=== PATIENT | female | born 1985 | race Caucasian/White ===

== ENCOUNTER → 2016-12-23 | Outpatient (CLI) | payer OTHER ==
--- NOTE | 2016-12-23 16:55 | US ---
EXAMINATION TYPE: US transvaginal DATE OF EXAM: 12/23/2016 4:10 PM COMPARISON: NONE CLINICAL HISTORY: N92.6 irregular menses. Patient stated had irregular menses August 2016 through 2016; C section x 3 TECHNIQUE: Transvaginal (TV) as patient chose TVUS as bladder not full Date of LMP: 12/18/2016 EXAM MEASUREMENTS: Uterus: 9.0 x 6.0 x 4.6 cm Endometrial Stripe: 0.8 cm Right Ovary: 3.3 x 1.8 x 2.1 cm Left Ovary: 3.1 x 1.9 x 1.9 cm TECHNOLOGIST IMPRESSION: 1. Uterus: Anteverted; scar is noted 2. Endometrium: small amount of fluid in upper endo = 0.7 x 1.0 x 0.2cm 3. Right Ovary: multiple small follicles 4. Left Ovary: small follicles 5. Bilateral Adnexa: wnl 6. Posterior cul-de-sac: wnl Uterus is heterogeneous in appearance. Endometrium is 8 mm which is mildly thickened for proliferativ e phase of menstrual cycle. Tiny amount of fluid in endometrial canal is seen superiorly. No free flu id in pelvis is noted. Both ovaries are identified. No suspicious adnexal masses are seen. IMPRESSION: Endometrial thickness is 8 mm, mildly thickened for proliferative phase of menstrual cycl e.
== END ==
LOC: RADUSWWP 15:28
PROVIDERS: ATTEND Obstetrics & Gynecology
DX: N92.6 Irregular menstruation, unspecified (principal)
CPT/HCPCS: 76830

== ENCOUNTER → 2020-05-09 | Outpatient (CLI) | payer OTHER ==
--- NOTE | 2020-05-09 15:40 | US ---
EXAMINATION TYPE: US pelvis complete transvag DATE OF EXAM: 05/09/2020 COMPARISON: None CLINICAL HISTORY: 34-year-old female F10.2 PELVIC PAIN, N92.3 SPOTTING. TECHNIQUE: Transabdominal sonographic images of the pelvis were acquired. Transvaginal sonographic images were medically necessary to better assess the following anatomy: Endometrium Date of LMP: 05/05/2020 FINDINGS: EXAM MEASUREMENTS: Uterus: 9.5 x 4.4 x 6.1 cm Endometrial Stripe: 1.9 cm Right Ovary: 3.0 x 2.9 x 1.7 cm Left Ovary: 2.5 x 2.0 x 2.2 cm 1. Uterus: Anteverted and wnl. scar along the anterior lower uterine segment. 2. Endometrium: Thickened, irregular with fluid within 3. Right Ovary: wnl 4. Left Ovary: wnl 5. Bilateral Adnexa: wnl 6. Posterior cul-de-sac: no free fluid IMPRESSION: 1. Prior scar. 2. Abnormal lobulated thickening of the endometrium with fluid in the uterine cavity. Consider the ut ility of endometrial biopsy to further evaluate. Follow-up is recommended.
== END | disposition home or self-care (01) ==
LOC: RADUSWWP 14:59
PROVIDERS: ATTEND Obstetrics & Gynecology
DX: R93.89 Abnormal findings on diagnostic imaging of other specified body structures (principal); Z98.891 History of uterine scar from previous surgery; N92.3 Ovulation bleeding
CPT/HCPCS: 76830; 76856

== ENCOUNTER → 2020-08-07 | Outpatient (CLI) | payer OTHER ==
--- NOTE | 2020-08-07 17:19 | US ---
EXAMINATION TYPE: Ultrasound OB <= 14 weeks transvaginal DATE OF EXAM: 08/07/2020 4:24 PM COMPARISON: NONE CLINICAL HISTORY: 34-year-old female Z36 CONFIRM DATES. EXAM PERFORMED: Transvaginal (TV) and Transabdominal (TA) FINDINGS: EXAM MEASUREMENTS: GESTATIONAL AGE / DATING Physician Established: Not yet established Dates by LMP: 06/08/20 (8 weeks/4 days) EDC: 03/15/21 Dates by First Scan: No previous this is first scan Dates by Current Scan for: (8 weeks/0 days) EDC: 03/19/21 MATERNAL ANATOMY Uterus: 11.7 x 5.9 x 8.3 cm Right Ovary: 1.7 x 1.7 x 1.5 cm Left Ovary: 2.9 x 2.1 x 1.9 cm Post CDS / Adnexa: wnl Presence of free fluid: no Presence of corpus luteal cyst: not visualized at this time Presence of subchorionic bleed: yes, moderate sized located towards the left and inferior to the gest ational sac measuring 4.5 x 1.1 x 3.5 cm GESTATION / SURVEY CRL: 1.6 (8 weeks/1 days) MSD: 2.6 (7 weeks/5 days) Yolk Sac (normal less than 6mm): 0.4 Heart Rate: 163 bpm Rhythm: Normal IUP: Viable IUP Date of LMP: 06/08/20 Beta HcG (if available): Not available at this time [facility] notes: Single, viable IUP with HR= 163 bpm. Dates by Current Scan for: (8 weeks/0 days) EDC: 03/19/21 IMPRESSION: 1. Single live uterine with estimated gestational age of 8 weeks 4 days by LMP. Current ult rasound biometry is slightly smaller at 8 weeks 0 days. 2. Moderate-sized perigestational bleed measuring up to 4.5 x 3.5 x 1.1 cm. 3. Short interval follow-up can be performed. In addition, complete survey recommended at 18-20 weeks.
== END | disposition home or self-care (01) ==
LOC: RADUSWWP 15:34
PROVIDERS: ATTEND Obstetrics & Gynecology
DX: Z36.87 Encounter for antenatal screening for uncertain dates (principal); Z3A.08 8 weeks gestation of pregnancy
CPT/HCPCS: 76801; 76817

== ENCOUNTER 2020-11-01 05:52 | Observation (INO) | payer OTHER ==
--- NOTE | 2020-10-31 21:30 | P.HPOB ---
History of Present Illness H&P Date: 10/31/20 Chief Complaint: demise This is a 35 y.o. female, 4, para3, with an estimated date of confinement of 03/15/2021, who presented for scheduled anatomy scan on 10/31/2020 and was diagnoses with a demise at 15-5/7 weeks in the breech presentation. She thinks she has been feeling movement occasionally. She has felt some cramping a few days ago. She did have laminaria placed in the office on 10/31/2020. labs: GC/Chlamydia/Trich-neg Hepatitis B surface antigen-neg RPR-NR Rubella-immune Blood type-A+ Antibody screen-neg HIV-NR Hemoglobin-11.3 US- 8 weeks-+FHTs, subchorionic bleed 4.5 x 3.5 cm. OB Hx: . Hx of 3 previous c-sections. 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 Works at [employer] Review of Systems Constitutional: Denies chills, Denies fever Eyes: denies blurred vision, denies pain Ears, nose, mouth and throat: Denies headache, Denies sore throat Cardiovascular: Denies chest pain, Denies shortness of breath Respiratory: Denies cough Gastrointestinal: Denies abdominal pain, Denies diarrhea, Denies nausea, Denies vomiting Genitourinary: Reports , Denies dysuria, Denies hematuria Musculoskeletal: Denies myalgias Integumentary: Denies pruritus, Denies rash Neurological: Denies numbness, Denies weakness Psychiatric: Reports depression Past Medical History Additional Past Medical History / Comment(s): gestational diabetes w/pregnancies-diet controlled History of Any Multi-Drug Resistant Organisms: None Reported Past Surgical History: Section (x3) Past Anesthesia/Blood Transfusion Reactions: No Reported Reaction Past Psychological History: Depression Smoking Status: Never smoker Past Alcohol Use History: None Reported Past Drug Use History: None Reported - Past Family History Mother Family Medical History: Hypertension Father Family Medical History: Diabetes Mellitus, Hypertension Medications and Allergies Home Medications Medication Instructions Recorded Confirmed Type Citalopram Hydrobromide [CeleXA] 10/31/20 History Allergies Allergy/AdvReac Type Severity Reaction Status Date / Time No Known Allergies Allergy Verified 01/11/15 10:48 Exam Osteopathic Statement: *. No significant issues noted on an osteopathic structural exam other than those noted in the History and Physical/Consult. HEENT: within normal limits Hear: regular rate and rhythm Lungs: clear to auscultation bilaterally Abdomen: , non-tender Cervix: nulliparous os, closed Pelvic: uterus approx. 18 week size, non-tender. Extremities: neg. Twyla's Assessment and Plan (1) demise before 20 weeks with retention of fetus Status: Acute Code(s): O02.1 - MISSED SNOMED Code(s): 090552095 Plan: Proceed with Hemabate induction of labor. Pain control.
[2020-11-01] MEDS ORDERED: BUTORPHANOL 1 MG/ML 1 ML VIAL IV PRN (06:25)
[2020-11-01] MEDS ORDERED: LACTATED RINGERS 1,000 ML IV SCH (06:25)
[2020-11-01 07:05] LABS: Basophils % (A) 0 %; Eosinophils # (A) 0.1 k/uL (0-0.7); Eosinophils % (A) 1 %; HCT 34.2 % (34.0-46.0); HGB 11.7 gm/dL (11.4-16.0); Lymphocytes # (A) 1.4 k/uL (1.0-4.8); Lymphocytes % (A) 14 %; MCH 29.6 pg (25.0-35.0); MCHC 34.1 g/dL (31.0-37.0); MCV 86.6 fL (80.0-100.0); Mean Platelet Volume 7.3; Monocytes # (A) 0.3 k/uL (0-1.0); Monocytes % (A) 3 %; Neutrophils # (A) 8.6 k/uL (1.3-7.7); Neutrophils % (A) 82 %; Platelet Count 246 k/uL (150-450); RBC 3.95 m/uL (3.80-5.40); RDW 14.2 % (11.5-15.5); WBC 10.5 k/uL (3.8-10.6)
[2020-11-01] MEDS: ONDANSETRON 4 MG/2 ML VIAL IVP PRN ×2 (08:04→14:01)
[2020-11-01] MEDS: DIPHENOX-ATROP 2.5-0.025 MG 1 EACH TAB PO PRN ×2 (08:04→14:01)
[2020-11-01] MEDS: ACETAMINOPHEN TAB 325 MG TAB PO PRN ×2 (08:04→14:00)
[2020-11-01] MEDS: CARBOPROST TROMETHAMINE 250 MCG/ML 1 ML AMP IM SCH ×4 (08:37→14:39)
[2020-11-01 16:21] VITALS: TEMP 98.3
--- NOTE | 2020-11-01 17:38 | P.PROBDLV ---
Vaginal Delivery Note - . Vaginal Delivery Note: The patient delivered a nonviable what appears to be female infant after Hemabate induction at 1505. Infant weight was 90 g. There was noted to be a tight nuchal cord 3 and a cord wrapped around the left arm that was tight. Placenta didn't also come out intact with the baby. There was meconium fluid when rupture of membranes occurred spontaneously. After delivery, minimal bleeding was noted. Fundus is firm and nontender. Blood loss was less than 50 mL's. Mother is in stable condition. Mother declined autopsy.
--- NOTE | 2020-11-01 17:43 | P.DS ---
Providers Date of admission: 11/01/20 05:52 Expected date of discharge: 11/01/20 Attending physician: Rosie Sheppard Primary care physician: Stated None - Discharge Diagnosis(es) (1) demise before 20 weeks with retention of fetus Current Visit: No Status: Acute Hospital Course: This is a 35-year-old female 4 para 3 who has a demise measuring approximately 15 weeks 5 days on ultrasound yesterday. She underwent laminaria cervical dilation last night and was given Hemabate injections today. She delivered a nonviable apparent female at 1505 with a weight of 90 g and tight nuchal cord 3 around the neck and tight cord around the left arm. Placenta delivered at the same time intact. Placenta will be sent to pathology and will be sent for gross examination only. Mother declined autopsy. Her bleeding has been minimal since delivery. She has no pain currently. Vital signs are stable. She has requested to go home. She will be discharged home in stable condition. She will continue on her Celexa and will go back up to her dose that she was on prior to . She will follow-up with her primary physician for any dosing changes. She will also be given a list of phone numbers for counselors to contact. She is advised follow-up in the office in approximately 2 weeks. She is advised to call the office if she has any further questions or concerns prior to her appointment time. Procedures: Hemabate induction of labor Vaginal delivery of a nonviable fetus less than 20 weeks Patient Condition at Discharge: Stable Plan - Discharge Summary New Discharge Prescriptions: No Action Citalopram Hydrobromide [CeleXA] 20 mg PO DAILY Discharge Medication List Citalopram Hydrobromide [CeleXA] 20 mg PO DAILY 10/31/20 [History] Follow up Appointment(s)/Referral(s): Rosie Sheppard DO [Doctor of Osteopathic Medicine] - 2 Weeks Activity/Diet/Wound Care/Special Instructions: Activity as tolerated. Diet as tolerated. No intercourse until seen in the office. Call the office with any fevers, excessive bleeding, excessive pain. Discharge Disposition: HOME SELF-CARE
[2020-11-01 17:49] VITALS: BP 122/80; PULSE 74; RESP 16
== END 2020-11-01 19:20 | disposition home or self-care (01) ==
LOC: INTOOBSV 05:52 → 4FBP 05:52 → UNDODISIN 19:20
PROVIDERS: ADMIT Obstetrics & Gynecology; ATTEND Obstetrics & Gynecology
DX: O02.1 Missed abortion (principal); Z3A.20 20 weeks gestation of pregnancy; O34.219 Maternal care for unspecified type scar from previous cesarean delivery; O99.344 Other mental disorders complicating childbirth; F32.9 Major depressive disorder, single episode, unspecified; O69.1XX0 Labor and delivery complicated by cord around neck, with compression, not applicable or unspecified; O77.0 Labor and delivery complicated by meconium in amniotic fluid; O69.2XX0 Labor and delivery complicated by other cord entanglement, with compression, not applicable or unspecified; Z79.899 Other long term (current) drug therapy; Z86.32 Personal history of gestational diabetes; Z82.49 Family history of ischemic heart disease and other diseases of the circulatory system; Z83.3 Family history of diabetes mellitus
CPT/HCPCS: 96376; 96361; 96372; 96374; 96375; 86900; 86901; 88305; 85025; 86850; 88300; G0379; G0378; J0595; J2405

== ENCOUNTER 2021-09-19 06:00 | Observation (INO) | payer OTHER ==
--- NOTE | 2021-09-18 19:32 | P.HPOB ---
History of Present Illness H&P Date: 09/18/21 Chief Complaint: demise This is a 36 y.o. female, 5, para 3, with an estimated date of confinement of 02/26/2022, estimated gestational age of 17 weeks, who presented for a routine visit and no heart tones were found. Ultrasound was performed that showed demise measuring about 14 weeks size. Normal fluid was noted. She had 3 laminaria placed in the office this evening and will present in the morning for hemabate induction. Her is complicated by early 1 hr. GTT at 208. She was scheduled to see maternal medicine later this month. OB Hx: . History of 3 c-sections. History of demise at 15 weeks with last . All of her pregnancies were complicated by gestational diabetes. 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 Works at [employer]. Review of Systems Constitutional: Denies chills, Denies fever Eyes: denies blurred vision, denies pain Ears, nose, mouth and throat: Denies headache, Denies sore throat Cardiovascular: Denies chest pain, Denies shortness of breath Respiratory: Denies cough Gastrointestinal: Reports abdominal pain (R. lower quadrant recently) Genitourinary: Reports pelvic pain, Reports Musculoskeletal: Reports low back pain (more on R. side) Integumentary: Denies pruritus, Denies rash Neurological: Denies numbness, Denies weakness Psychiatric: Reports anxiety, Reports depression Past Medical History Past Medical History: Diabetes Mellitus Additional Past Medical History / Comment(s): gestational diabetes w/pregnancies-diet controlled History of Any Multi-Drug Resistant Organisms: None Reported Past Surgical History: Section Additional Past Surgical History / Comment(s): x3 Past Anesthesia/Blood Transfusion Reactions: No Reported Reaction Past Psychological History: Anxiety, Depression Additional Psychological History / Comment(s): hx PPD with last . currently medicated with celexa Smoking Status: Never smoker Past Alcohol Use History: None Reported Past Drug Use History: None Reported - Past Family History Mother Family Medical History: Hypertension Father Family Medical History: Diabetes Mellitus, Hypertension Medications and Allergies Home Medications Medication Instructions Recorded Confirmed Type Citalopram Hydrobromide [CeleXA] 40 mg PO DAILY 10/31/20 11/01/20 History Allergies Allergy/AdvReac Type Severity Reaction Status Date / Time No Known Allergies Allergy Verified 11/01/20 06:24 Exam Osteopathic Statement: *. No significant issues noted on an osteopathic structural exam other than those noted in the History and Physical/Consult. HEENT: within normal limits Heart: regular rate and rhythm Lungs: clear to auscultation bilaterally Abdomen: , non-tender Cervix: closed, thick, non-tender Uterus: enlarged approx. 16 week size. Extremities: neg. Twyla's. Assessment and Plan (1) demise before 20 weeks with retention of fetus Status: Acute Code(s): O02.1 - MISSED SNOMED Code(s): 028859423 Plan: Admission for Hemabate induction of labor. Will pre-medicate for nausea, diarrhea, and fever. Expectant management.
[2021-09-19] MEDS ORDERED: BUTORPHANOL 1 MG/ML 1 ML VIAL IV PRN (06:21)
[2021-09-19] MEDS ORDERED: ACETAMINOPHEN TAB 325 MG TAB PO PRN ×2 (06:21→18:22)
[2021-09-19] MEDS: LACTATED RINGERS 1,000 ML IV SCH ×2 (06:35→18:05)
[2021-09-19] MEDS: DIPHENOX-ATROP 2.5-0.025 MG 1 EACH TAB PO PRN ×2 (06:43→13:51)
[2021-09-19] MEDS: METOCLOPRAMIDE 5 MG/ML 2 ML VIAL IVP PRN ×2 (06:44→14:51)
[2021-09-19 06:51] LABS: Basophils % (A) 0 %; Eosinophils # (A) 0.2 k/uL (0-0.7); Eosinophils % (A) 2 %; HCT 35.8 % (34.0-46.0); HGB 11.7 gm/dL (11.4-16.0); Lymphocytes # (A) 1.5 k/uL (1.0-4.8); Lymphocytes % (A) 17 %; MCH 27.7 pg (25.0-35.0); MCHC 32.7 g/dL (31.0-37.0); MCV 84.6 fL (80.0-100.0); Monocytes # (A) 0.4 k/uL (0-1.0); Monocytes % (A) 4 %; Neutrophils # (A) 6.7 k/uL (1.3-7.7); Neutrophils % (A) 76 %; Platelet Count 241 k/uL (150-450); RBC 4.23 m/uL (3.80-5.40); RDW 14.5 % (11.5-15.5); WBC 8.8 k/uL (3.8-10.6)
[2021-09-19] MEDS: CARBOPROST TROMETHAMINE 250 MCG/ML 1 ML AMP IM SCH ×4 (07:48→18:05)
[2021-09-19 16:12] LABS: Basophils % (A) 0 %; Eosinophils % (A) 0 %; HCT 33.3 % (34.0-46.0); HGB 10.9 gm/dL (11.4-16.0); Lymphocytes # (A) 1.1 k/uL (1.0-4.8); Lymphocytes % (A) 9 %; MCHC 32.8 g/dL (31.0-37.0); MCV 85.3 fL (80.0-100.0); Mean Platelet Volume 7.4; Monocytes # (A) 0.4 k/uL (0-1.0); Monocytes % (A) 3 %; Neutrophils # (A) 11.8 k/uL (1.3-7.7); Neutrophils % (A) 88 %; Platelet Count 253 k/uL (150-450); RBC 3.91 m/uL (3.80-5.40); RDW 14.6 % (11.5-15.5); WBC 13.5 k/uL (3.8-10.6)
--- NOTE | 2021-09-19 18:17 | P.PROBDLV ---
Vaginal Delivery Note - . Vaginal Delivery Note: patient was given Hemabate induction of labor this morning and 3 laminaria were removed. She delivered vaginally a nonviable at 11:34 AM that weighed 1.4 ounces and measured 4-3/4 inches. The cervix is indeterminate but patient feels it is a male fetus. No gross anatomical defects are visualized on the baby. There was a small thickened area on the cord near the umbilical insertion. She was continued on Hemabate for awaiting the placenta. She began passing blood clots off and on after the delivery of the fetus but the placenta did not completely deliver on its own. There was a cord and membranes that did detach. I did come to evaluate and on speculum exam I could see placental tissue sitting at the opened os. I was able to grasp this with a ring forcep and remove what appeared to be the remainder of the placenta intact. I did not see any further membranes or placental tissue at the os. The os appeared to close shortly after delivery of the placenta no active bleeding was noted at this time. Oxytocin was given. No continued active bleeding is noted since delivery of the placenta. Estimated blood loss of the mother's pads after delivery of the fetus was 1595 mL's. A stat CBC was drawn shortly before delivery of the placenta and her hemoglobin did appear stable.patient was advised that I would feel more comfortable if she stayed overnight to observe for any signs of heavy bleeding and to recheck her hemoglobin in the morning. S he is agreeable to this. She will be given a regular diet. She has declined autopsy. Placenta will be sent to pathology.
[2021-09-19] MEDS ORDERED: IBUPROFEN 600 MG TAB PO PRN (18:22)
[2021-09-19] MEDS ORDERED: OXYTOCIN 30 UNITS/500 ML NS 30 UNIT in SALINE 1 500ML.BAG IV SCH (18:22)
[2021-09-19] MEDS ORDERED: LANOLIN CREAM 5 GM TUBE TOPICAL PRN (18:22)
[2021-09-19] MEDS ORDERED: SIMETHICONE 80 MG CHEWABLE PO PRN (18:22)
[2021-09-19] MEDS ORDERED: BENZOCAINE/MENTHOL SPRAY 1 GM/SPRAY AEROSOL TOPICAL PRN (18:22)
[2021-09-19] MEDS ORDERED: diphenhydrAMINE 50 MG/ML 1 ML VIAL IVP PRN ×2 (18:22)
[2021-09-19] MEDS ORDERED: HYDROCORTISONE 2.5% RECTAL CREAM 30 GM TUBE RECTAL PRN (18:22)
[2021-09-19] MEDS ORDERED: diphenhydrAMINE 50 MG CAP PO PRN (18:22)
[2021-09-19] MEDS ORDERED: ZOLPIDEM 5 MG TAB PO PRN (18:22)
[2021-09-19] MEDS ORDERED: diphenhydrAMINE 25 MG CAP PO PRN (18:22)
[2021-09-19] MEDS: SENNOSIDES-DOCUSATE SODIUM 1 EACH TAB PO SCH (22:46)
[2021-09-20 06:18] LABS: Basophils % (A) 0 %; Eosinophils # (A) 0.1 k/uL (0-0.7); Eosinophils % (A) 2 %; HCT 27.6 % (34.0-46.0); Lymphocytes # (A) 1.9 k/uL (1.0-4.8); Lymphocytes % (A) 22 %; MCH 28.2 pg (25.0-35.0); MCHC 33.4 g/dL (31.0-37.0); MCV 84.6 fL (80.0-100.0); Mean Platelet Volume 7.4; Monocytes # (A) 0.4 k/uL (0-1.0); Monocytes % (A) 5 %; Neutrophils # (A) 6.1 k/uL (1.3-7.7); Neutrophils % (A) 71 %; Platelet Count 227 k/uL (150-450); RBC 3.26 m/uL (3.80-5.40); RDW 14.8 % (11.5-15.5); WBC 8.6 k/uL (3.8-10.6)
[2021-09-20 06:22] LABS: HGB 9.2 gm/dL (11.4-16.0)
[2021-09-20 06:30] LABS: Toxoplasma Antibody (IgG) <3.0 IU/mL (<7.2)
--- NOTE | 2021-09-20 07:28 | P.DS ---
Providers Date of admission: 09/19/21 06:19 Expected date of discharge: 09/20/21 Attending physician: Rosie Sheppard Primary care physician: Stated None - Discharge Diagnosis(es) (1) demise before 20 weeks with retention of fetus Current Visit: No Status: Acute Hospital Course: This is a 36-year-old female who underwent a Hemabate induction due to demise at approximately 14 weeks. She delivered vaginally a nonviable fetus on 09/19/2021 followed by partial manual placental removal. She did have significant amount of bleeding between delivery of the baby and the placenta. She however was asymptomatic. After delivery of the placenta, her bleeding was very minimal. Pain is been well controlled. She denies any dizziness or lightheadedness upon walking and denies any shortness of breath. She did have a headache last night that was resolved with Tylenol. Vital signs are stable. Abdomen is soft with fundus firm and nontender. Georgiana-pad shows scant serosanguineous discharge. Extremities show negative Homans. Impression is status post vaginal delivery of a nonviable fetus less than 20 weeks, blood loss anemia. Plan is to discharge home today. She is encouraged to take Slow Fe daily at home. She is also to continue her normal medications for anxiety and depression. She is advised follow-up in the office in approximately 2 weeks for a check. She is advised to call the office if she has any further questions or concerns prior to her appointment time. Procedures: Hemabate induction of labor Spontaneous vaginal delivery of a nonviable fetus less than 20 weeks Patient Condition at Discharge: Stable Plan - Discharge Summary New Discharge Prescriptions: No Action Citalopram Hydrobromide [CeleXA] 40 mg PO DAILY Discharge Medication List Citalopram Hydrobromide [CeleXA] 40 mg PO DAILY 10/31/20 [History] Follow up Appointment(s)/Referral(s): Rosie Sheppard DO [Doctor of Osteopathic Medicine] - 2 Weeks Activity/Diet/Wound Care/Special Instructions: Activity as tolerated. Diet as tolerated. May shower, but no tub baths for 2 weeks. No intercourse for 2 weeks. Discharge Disposition: HOME SELF-CARE
[2021-09-20] MEDS: SENNOSIDES-DOCUSATE SODIUM 1 EACH TAB PO SCH (07:57)
[2021-09-20 08:00] VITALS: BP 112/67; PULSE 86; RESP 18; TEMP 97.8
[2021-09-20] MEDS ORDERED: CITALOPRAM HYDROBROMIDE 20 MG TAB PO SCH (09:00)
[2021-09-21 05:33] LABS: Herpes simplex I and/or II IgM 0.45 INDEX (<=0.90); Toxoplasma Antibody (IgM) <3.0 AU/mL (<8.0)
== END 2021-09-20 09:10 | disposition home or self-care (01) ==
LOC: INTOOBSV 06:19 → 4FBP 06:19 → UNDODISIN 09-20 09:10
PROVIDERS: ADMIT Obstetrics & Gynecology; ATTEND Obstetrics & Gynecology
PROC: 10D07Z3 Extraction of Products of Conception, Low Forceps, Via Natural or Artificial Opening (ICD-10-PCS; principal; 2021-09-19)
DX: O02.1 Missed abortion (principal); D62 Acute posthemorrhagic anemia; F32.A Depression, unspecified; F41.9 Anxiety disorder, unspecified; Z3A.17 17 weeks gestation of pregnancy; Z79.899 Other long term (current) drug therapy; Z86.32 Personal history of gestational diabetes; Z98.891 History of uterine scar from previous surgery; Z82.49 Family history of ischemic heart disease and other diseases of the circulatory system; Z83.3 Family history of diabetes mellitus
CPT/HCPCS: 86900; 86901; 86762 ×2; 86778; 86645; 86644; 86777; 88305; 86696; 86694; 86695; 85025 ×2; 86850; 88300; 83036; G0378 ×3; G0379; J2765; J0595